=== PATIENT | male | born 1960 ===

== ENCOUNTER 2019-02-08 14:37 | Outpatient (CLI) | payer SELFPAY | END 2019-02-08 14:38 | disposition EMS.NT | LOC: EMS 14:37 | PROVIDERS: ATTEND Surgery | DX: T75.1XXA Unspecified effects of drowning and nonfatal submersion, initial encounter (principal); V92.15XA Drowning and submersion due to being thrown overboard by motion of canoe or kayak, initial encounter; Y93.16 Activity, rowing, canoeing, kayaking, rafting and tubing; Y92.832 Beach as the place of occurrence of the external cause ==